=== PATIENT | female | born 1945 | race Caucasian/White ===

== ENCOUNTER → 2016-11-01 17:01 | Outpatient (CLI) | payer MEDICARE ==
[2010-07-08 11:23] VITALS: BMI 40.8
== END | disposition home or self-care (01) ==
LOC: D.MAMMO 10:30
DX: Z12.31 Encounter for screening mammogram for malignant neoplasm of breast (principal)

== ENCOUNTER 2017-03-22 07:47 | Outpatient (CLI) | payer MEDICARE, OTHER ==
[~2017-03-22] VITALS: Ht 157.5 cm; Wt 70.5 kg
--- NOTE | ~2017-03-22 | HEMODYNAMI ---
PATIENT:KARAN KITCHEN MEDICAL RECORD: [id number] : 43 LOCATION:[facility] ADMISSION DATE: 03/22/17 Generatedon:03/22/201710:55 Patient name: KARAN KITCHEN Patient #: [id number] SSN: : 1945 Date of study: 03/22/2017 Page: Of Hemodynamic Procedure Report Patient Data Patient Demographics Procedure consent was obtained First Name: KARAN Gender: Female Last Name: FIDELINA : 1945 [facility] Initial: JORGE L Age: 71 year(s) Patient #: [id number] Race: Unknown Additional ID: [id number] Contact details Address: [address] State: [place] City: [place] Zip code: [address] Admission Admission Data Admission Date: 03/22/2017 Admission Time: 7:47 Height (in.): 62 BSA: 1.72 (m2) Height (cm.): 157.48 BMI: 28.35 (kg/m2) Weight (lbs.): 155 Weight (kg.): 70.31 Lab Results Lab Result Date: 03/22/2017 Lab Result Time: 0:00 Biochemistry Name Units Result Min Max BUN mg/dl 36 --(----)-* 7 18 Creatinine mg/dl 1.3 --(---*)-- 0.6 1.3 CBC Name Units Result Min Max Hemoglobin g/dl 14.6 --(-*--)-- 13.5 17.5 Procedure Procedure Types Cath Procedure Miscellaneous Procedures Moderate Sedation up to 15 minutes Peripheral Cath Diagnostic Procedure Cath Peripheral Lyngo-Dzriwkb-Rtk-Off Procedure Description Procedure Date Procedure Date: 03/22/2017 Procedure Start Time: 10:35 Procedure End Time: 10:53 Procedure Staff Name Function Phil Harris MD Performing Physician Gerry Gonsalez RN Nurse Oscar Reeves RT Monitor Millie Matute RT Scrub Procedure Data Cath Procedure Fluoroscopy Diagnostic fluoroscopy Total fluoroscopy Time: 1.3 time: 1.3 min min Diagnostic fluoroscopy Total fluoroscopy dose: 87 dose: 87 mGy mGy Contrast Material Contrast Material Type Amount (ml) Isovue 300 50 Entry Location Entry Primary Successful Side Size Upsize Upsize Entry Closure Succes sful Closure Location (Fr) 1 (Fr) 2 (Fr) Remarks Device Remarks Femoral Left 5 Fr Vascade artery Closure System Estimated blood loss: 10 ml Diagnostic catheters Device Type Used For End Catheter Placement Cordis Tempo 5Fr UF Procedure catheter Procedure Complications No complications Procedure Medications Medication Administration Route Dosage Oxygen NC 2 l/min Heparin Flush Bag added to field 2 bags (1000units/500ml NS) 0.9% NaCl I.V. 100 ml/hr Fentanyl I.V. 50 mcg Versed I.V. 1 mg Fentanyl I.V. 50 mcg Versed I.V. 1 mg Hemodynamics Rest BSA: 1.72 (m2) O2 Consumption: Estimated: 151.2 (ml/min) O2 Consumption indexed: Estimated:87.91 (ml/min/m) Heart Rate: 60 (bpm) Pressure Samples Time Site Value (mmHg) Purpose Heart Use Rate(bpm) 10:40 AO 113/49(72) Snapshot 60 Snapshots Pre Cath Intra NCS Post Cath Vital Signs Time Heart Resp SPO2 etCO2 [id number] NIBP (mmHg) Rhythm Pain Sedation Rate (ipm) (%) (mmHg) (mmHg) Status Level (bpm) 10:03:40 65 16 99 0 0 153/65(117) NSR 0 (11) 10(A) , No pain 10:08:02 60 17 97 0 0 138/58(107) NSR 0 (11) 10(A) , No pain 10:12:16 60 17 95 0 0 117/62(94) NSR 0 (11) 10(A) , No pain 10:16:32 60 18 98 0 0 116/55(90) NSR 0 (11) 10(A) , No pain 10:20:44 60 18 97 0 0 123/62(97) NSR 0 (11) 10(A) , No pain 10:25:00 60 16 97 0 0 120/58(92) NSR 0 (11) 10(A) , No pain 10:29:16 60 17 97 0 0 120/58(96) NSR 0 (11) 10(A) , No pain 10:33:30 60 18 97 0 0 120/60(93) NSR 0 (11) 10(A) , No pain 10:37:46 60 16 95 0 0 117/58(85) NSR 0 (11) 9(A) , No pain 10:42:02 60 17 95 0 0 113/54(85) NSR 0 (11) 9(A) , No pain 10:45:25 60 17 96 0 0 110/56(86) NSR 0 (11) 9(A) , No pain 10:49:39 60 19 97 0 0 113/52(88) NSR 0 (11) 9(A) , No pain 10:53:38 0 0 No Cuff NSR 0 (11) 9(A) , No pain Medications Time Medication Route Dose Verified Delivered Reason Notes Effec tiveness by by 10:05:11 Oxygen NC 2 Gerry Gerry Per l/min Wallace Gonsalez RN physician RN 10:05:22 Heparin Flush added 2 Gerry Gerry used for Bag to bags Wallace Gonsalez RN procedure (1000units/500ml field RN NS) 10:05:33 0.9% NaCl I.V. 100 Gerry Gerry Per ml/hr Wallace Gonsalez RN physician RN 10:34:02 Fentanyl I.V. 50 Gerry Gerry for gerald Gonsalez RN sedation RN 10:34:08 Versed I.V. 1 mg Gerry Gerry for Wallace Gonsalez RN sedation RN 10:38:16 Fentanyl I.V. 50 Gerry Gerry for gerald Gonsalez RN sedation RN 10:38:19 Versed I.V. 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 Start room use. 9:58:07 Patient received from Pre/Post Procedure Room to CCL 1 Alert and oriented. Tansferred to table in Supine position. 9:58:08 Warm blankets applied, and darby hugger turned on for patient comfort. 9:58:09 Correct patient and procedure confirmed by team. 9:58:10 Signed procedure consent form obtained from patient. 10:01:56 Time tracking: Regular hours 10:02:00 Plan of Care:Hemodynamics will remain stable., Cardiac rhythm will remain stable., Comfort level will be maintained., Respiratory function will remain adequate., Patient/ family verbilizes understanding of procedure., Procedure tolerated without complication., Recovers from procedure without complications.. 10:02:10 ECG and BP/O2 sat monitors applied to patient. 10:02:28 Vital chart was started 10:05:11 Oxygen 2 l/min NC was administered by Gerry Gonsalez RN; Per physician; 10:05:22 Heparin Flush Bag (1000units/500ml NS) 2 bags added to field was administered by Gerry Gonsalez RN; used for procedure; 10:05:33 0.9% NaCl 100 ml/hr I.V. was administered by Gerry Gonsalez RN; Per physician; 10:12:50 Rhythm: paced 10:12:52 Full Disclosure recording started 10:13:15 H&P Date Dictated: 03/21/2017 Within 30 days and on chart., H&P Addendum completed by physician on day of procedure. (MUST COMPLETE FOR ALL OUTPATIENTS). 10:13:16 Pre-procedure instructions explained to patient. 10:13:16 Pre-op teaching completed and patient verbalized understanding. 10:13:19 Family in waiting room. 10:13:21 Patient NPO since Midnight. 10:13:24 Is the patient allergic to Iodine/contrast media? No. 10:13:26 Is patient on blood thinner?No 10:13:28 Patient diabetic? Yes. 10:13:29 If diabetic: On Metformin? No 10:13:30 Patient not . Patient is over age 55. 10:13:32 Previous problem with sedation/anesthesia? No ? 10:13:33 Snore? No 10:13:41 Sleep apnea? No 10:13:42 Deviated septum? No 10:13:43 Opens mouth fully? Yes 10:13:44 Sticks out tongue? Yes 10:13:46 Airway obstruction? Yes COPD 10:13:58 Dentures? No ? 10:14:01 Pre procedure: right dorsailis pedis pulse 1+ Palpable, but thready & weak; easily obliterated 10:14:05 Pre procedure: left dorsailis pedis pulse 1+ Palpable, but thready & weak; easily obliterated 10:14:09 Patient pain scale 0/10 ?. 10:14:16 IV patent on arrival in left forearm with 0.9% NaCl at KVO. 10:14:18 Lab results completed and on chart. 10:14:23 Bilateral groins area was prepped with chlora-prep and draped in sterile fashion 10:14:24 Alarms reviewed by R. N. 10:14:25 Sharps counted by scrub and verified by R.N. 10:14:31 Use device set Femoral Dx 10:14:32 Tegaderm 4 x 4 opened to sterile field. 10:14:33 Acist Hand Control opened to sterile field. 10:14:34 Acist Manifold opened to sterile field. 10:14:35 Acist Syringe opened to sterile field. 10:14:35 Bag Decanter opened to sterile field. 10:14:36 Medline Cath Pack opened to sterile field. 10:14:36 Terumo 5Fr Montgomery Sheath opened to sterile field. 10:14:37 St Adrian 260cm J .035 wire opened to sterile field. 10:15:01 Patient Height : 62 cm 10:15:04 Patient Weight : 155 kg 10:15:27 Lab Result : Hemoglobin 14.6 g/dl 10:15:27 Lab Result : Creatinine 1.3 mg/dl 10:15:27 Lab Result : BUN 36 mg/dl 10::23 Zero performed for pressure channel P1 10::07 --------ALL STOP TIME OUT------ :: Final Timeout: patient, procedure, and site verified with staff and physician. All members of the team are in agreement. 10:29:10 Bilateral groins site verified by team. 10:29:13 Physical assessment completed. ASA score P 2 - A patient with mild systemic disease as per Phil Harris MD. 10:29:17 Sedation plan: IV Moderate Sedation Versed, Fentanyl 10:34:02 Fentanyl 50 mcg I.V. was administered by Gerry Gonsalez RN; for sedation; 10:34:08 Versed 1 mg I.V. was administered by Gerry Gonsalez RN; for sedation; 10:35:07 Procedure started. 10:35:12 Local anesthetic to left femerol artery with Lidocaine 2% by Phil Harris MD.INITIAL ACCESS ONLY 10:38:16 Fentanyl 50 mcg I.V. was administered by Gerry Gonsalez RN; for sedation; 10:38:19 Versed 1 mg I.V. was administered by Gerry Gonsalez RN; for sedation; 10:38:38 Cook 18G 7cm Percutaneous Entry needle opened to sterile field. 10:38:59 A 5 Fr sheath was inserted into the Left Femoral artery 10:39:07 A CordDynis Tempo 5Fr UF catheter was advanced over the wire and used for Procedure. 10:39:47 Abdominal Aortagram was performed. 10:39:56 Left leg runoff performed. 10:40:12 Right leg runoff performed. 10:41:16 Catheter removed. 10:41:37 Vascade 5Fr Closure Device opened to sterile field. 10:42:35 Sheath removed intact; hemostasis achieved with Vascade Closure System to the Left Femoral artery. 10:42:39 Procedure ended.(Physican Out) 10:50:55 Fluoroscopy time 01.30 minutes. 10:50:58 Fluoroscopy dose: 87 mGy 10:50:58 Flurop Dose total: 87 10:51:05 Contrast amount:Isovue 300 50ml. 10:51:07 Sharps counted by scrub and verified by R.N. 10:51:09 Insertion/operative site no bleeding no hematoma. 10:51:15 Post-op/insertion site Left Femoral artery dressed using a 4 x 4 and Tegaderm. 10:51:20 Post Procedure Pulses reassessed and unchanged 10:51:28 Post-procedure physical assessment completed. ASA score P 2 - A patient with mild systemic disease as per Phil Harris MD. 10:51:30 Post procedure rhythm: unchanged. 10:51:33 Estimated blood loss: 10 ml 10:51:35 Post procedure instruction explained to patient.Patient verbalizes understanding. 10:51:36 Patient needs reinforcement of post procedure teaching. 10:52:39 Procedure and supply charges have been captured, reviewed, submitted and are correct. 10:52:42 Procedure Complication : No complications 10:53:06 Vital chart was stopped 10:53:07 See physician's report for complete and final results. 10:53:09 Report given to Pre/Post Procedure Room. 10:53:12 Patient transfered to Pre/Post Procedure Room with Stretcher. 10:53:15 Procedure ended. 10:53:15 Full Disclosure recording stopped 10:53:28 End room use (Document Last) Device Usage Item Name Manufacture Quantity Catalog Number Hospital Part Current Mini mal Lot# / Charge Number Stock Stock Serial# Code Tegaderm 4 x 3M 1 [id number] [id number] 5 4 Acist Hand Acist 1 35487 424602 062858 562314 5 Control [employer] Inc Acist Acist 1 28805 173709 207380 732194 5 Manifold Medical Systems Inc Acist Acist 1 38545 576635 221680 006880 20 Syringe Medical Systems Inc Bag Decanter Microtek 1 2002S 976113 36057 104474 5 Medical Inc. Medline Cath Cardinal 1 [id number] [id number] 64190 206993 5 Pack Health Terumo 5Fr Terumo 1 [id number] 135783 640947 304968 [address] [facility] 1 812866 598583 997458 251294 30 260cm J .035 wire Cook 18G 7cm Cook Medical 1 [id number] 285091 24955 247372 5 Percutaneous Entry needle Cordis Tempo Cardinal 1 [id number] 369499 583242 704763 10 5Fr Health catheter Vascade 5Fr Cardiva 1 [id number] 757583 68158 417564 10 Closure Medical, Device Inc. Signature Audit [place] Stage Time Signature Unsigned Intra-Procedure 03/22/2017 Oscar Reeves 10:55:07 AM RT(R) Signatures Monitor : Oscar Reeves RT Signature : Date : Time : [id number] [place] [address]
[2017-03-22] MEDS ORDERED: LEVOXYL50 MCG PO (08:29)
[2017-03-22] MEDS ORDERED: FUROSEMIDE40 MG PO (08:29)
[2017-03-22] MEDS ORDERED: ZOCOR20 MG PO (08:30)
[2017-03-22] MEDS ORDERED: ZYLOPRIM300 MG PO (08:30)
[2017-03-22] MEDS ORDERED: AMBIEN10 MG PO (08:30)
[2017-03-22] MEDS ORDERED: COREG6.25 MG PO (08:31)
[2017-03-22] MEDS ORDERED: ALDACTONE25 MG PO (08:31)
[2017-03-22] MEDS ORDERED: ASPIRIN325 MG PO (08:32)
[2017-03-22] MEDS ORDERED: CATAPRES0.2 MG PO (08:32)
[2017-03-22] MEDS ORDERED: ALEVE220 MG PO (08:33)
[2017-03-22 08:34] VITALS: BP 132/73; Ht 157.5 cm; Wt 70.5 kg
[2017-03-22 08:46] LABS: BASOPHILS 0.5 % (0-2); EOSINOPHILS 5.2 % (0-7); HEMATOCRIT 44.1 % (36.0-48.0); HEMOGLOBIN 14.6 g/dL (12-16); IMMATURE GRANULOCYTES 0.1 % (0-5); LYMPHOCYTES 21.1 % (15-50); MCH 30.2 pg (26.0-34.0); MCHC 33.1 g/dL (31.0-37.0); MCV 91.3 fL (80.0-100.0); MEAN PLATELET VOLUME 10.9 fL (7.4-10.4); MONOCYTES 8.7 % (2-11); NEUTROPHILS 64.4 % (40-80); RBC 4.83 10x6/uL (4.00-5.40); RDW 16.6 % (11.5-14.5); WBC 7.7 10x3/uL (4.8-10.8)
[2017-03-22 08:49] LABS: PLATELET COUNT 245 10x3/uL (130-400)
[2017-03-22 08:54] LABS: ANION GAP 12.9 mmol/L (8-16); CALCIUM 9.4 mg/dL (8.5-10.1); CARBON DIOXIDE 28.8 mmol/L (21.0-32.0); CREATININE - SERUM 1.3 mg/dL (0.6-1.3); POTASSIUM - SERUM 4.7 mmol/L (3.5-5.1)
--- NOTE | 2017-03-22 11:15 | NUR ---
LEFT GROIN CDI, NO HEMATOMA OR BLEEDING AT SITE, SOFT TO TOUCH, AT SIDE
--- NOTE | 2017-03-22 11:45 | NUR ---
NO CHANGES TO LEFT GROIN, BEDPAN USED, NO HEMATOMA OR BLEEDING
--- NOTE | 2017-03-22 12:30 | NUR ---
IV D'C WITH CATH TIP INTACT, WRITTEN AND VERBAL D'C INSTRUCTIONS GIVEN TO PT AND . D'C HOME WITH
--- NOTE | 2017-03-27 13:54 | OP ---
PATIENT NAME: KARAN KITCHEN MEDICAL RECORD: [id number] :43 LOCATION:D.CAT ADMISSION DATE: SURGEON: ROXY TEJADA MD OPERATION DATE: 03/22/17 DATE OF OPERATION: 03/22/2017 PROCEDURES: 1. Aortofemoral runoff. 2. Abdominal aortography. INDICATION: Claudication and peripheral vascular disease. PROCEDURE IN DETAIL: After informed consent was obtained and after a detailed explanation of risks, benefits as well as alternative therapies, the patient elected to proceed with angiogram. The left femoral area was prepped and draped in normal sterile fashion. The left femoral artery was cannulated via modified Seldinger technique with placement of 5-Ivorian sheath. All catheters exchanged through this sheath. FINDINGS: Abdominal aortography was performed. The catheter was pulled down for aortofemoral runoff. Abdominal aortography reveals renal artery stenosis on the right greater than 80%, no renal artery stenosis on the left. Moderate diffuse disease of the abdominal aorta, but no flow limiting stenosis. RIGHT LEG: A. Iliac: The common internal and external iliacs have moderate irregularities, but no flow-limiting stenosis. B. Femoral system: The common and deep femoral are widely patent. Superficial femoral has a total occlusion in the mid vessel all the way to the distal vessel. There is a large collateral that takes off right after total occlusion making this not amenable to transcatheter revascularization. C. Popliteal and infrapopliteal vessels appear to be patent with preserved 3-vessel runoff to the foot. LEFT LEG: A. Iliac: The common internal and external iliacs have moderate irregularities, but no flow-limiting stenosis. B. Femoral system: The common and deep femoral are widely patent. Superficial femoral has multiple areas of 70% to 80% stenosis. This is patent. This is amenable to transcatheter revascularization. C. Popliteal and infrapopliteal vessels are patent with preserved 3-vessel runoff to the foot. OVERALL IMPRESSION: Her main symptomatic leg is the right leg. This is not amenable to transcatheter revascularization, but would be amenable to femoropopliteal bypass surgery. TRANSINT:[id number] Voice Confirmation ID: [id number] DOCUMENT ID: [id number] OPERATIVE REPORT [id number] FIDELINAKARAN ROXY PARIKH MD at 1354 CC: [id number] DICTATION DATE: 03/22/17 [facility]8 SALES AND BUSINESS DEVELOPMENT MANAGER: 03/22/17 1115 DEP CLI 03/22/17 [id number] [place]
== END 2017-03-22 12:45 | disposition home or self-care (01) ==
LOC: D.CATH 07:47
PROVIDERS: Internal Medicine Interventional Cardiology
DX: I70.219 Atherosclerosis of native arteries of extremities with intermittent claudication, unspecified extremity (principal); R94.39 Abnormal result of other cardiovascular function study; I10 Essential (primary) hypertension; E78.5 Hyperlipidemia, unspecified; Z01.812 Encounter for preprocedural laboratory examination

== ENCOUNTER 2018-03-29 14:20 | Inpatient (IN) | payer MEDICARE, OTHER ==
[~2018-03-29] VITALS: Ht 157.5 cm; Wt 65.5 kg
--- NOTE | ~2018-03-29 | HEMODYNAMI ---
PATIENT:KARAN KITCHEN MEDICAL RECORD: [id number] : 43 LOCATION:[facility] ADMISSION DATE: 03/29/18 Generatedon:03/29/201815:57 Patient name: KARAN KITCHEN Patient #: [id number] SSN: : 1945 Date of study: 03/29/2018 Page: Of Hemodynamic Procedure Report Patient Data Patient Demographics Procedure consent was obtained First Name: KARAN Gender: Female Last Name: FIDELINA : 1945 [facility] Initial: JORGE L Age: 72 year(s) Patient #: [id number] Race: Unknown Additional ID: [id number] Contact details Address: [address] State: [place] City: [place] Zip code: [address] Past Medical History Allergies: No known allergies Admission Admission Data Admission Date: 03/29/2018 Admission Time: 14:20 Admit Source: Emergency department Current Diagnosis Diagnosis Description STEMI Procedure Procedure Types Cath Procedure Diagnostic Procedure LHC LHC w/Coronaries PCI Procedure AMI/SVG/SKIN CARE CONSULTANT PTCA or Stent AMI-BMS/WILFREDO Initial Procedure Description Procedure Date Procedure Date: 03/29/2018 Procedure Start Time: 15:20 Procedure End Time: 15:56 Procedure Staff Name Function Smith Cabello MD Performing Physician Delia Jara RT Monitor Gus Reyes RT Scrub Darlene Gomez RN Nurse Additional PCI Information PCI indication: Immediate PCI for STEMI STEMI or STEMI equivalent first noted in First ECG on First device activation on: 03/29/2018 15:36 Procedure Data Cath Procedure Fluoroscopy Diagnostic fluoroscopy Total fluoroscopy Time: 6.6 time: 6.6 min min Diagnostic fluoroscopy Total fluoroscopy dose: dose: 1180 mGy 1180 mGy Contrast Material Contrast Material Type Amount (ml) Isovue 370 132 Entry Location Entry Primary Successful Side Size Upsize Upsize Entry Closure Succes sful Closure Location (Fr) 1 (Fr) 2 (Fr) Remarks Device Remarks Femoral Right 6 Fr Exoseal artery Short Estimated blood loss: 10 ml Diagnostic catheters Device Type Used For End Catheter Placement MULTIPACK JL 4.0 5Fr Left Coronary catheter Angiography MULTIPACK 3DRC 5Fr Right Coronary catheter Angiography MULTIPACK Pigtail 5 Fr LV Angiography catheter DIAGNOSTIC AL 1 5Fr Right Coronary catheter ([id number]) Angiography Procedure Complications No complications Procedure Medications Medication Administration Route Dosage Oxygen etCO2 Nasal cannula 2 l/min Lidocaine 2% added to field 20 Heparin Flush Bag added to field 2 bags (1000units/500ml NS) 0.9% NaCl I.V. 100 ml/hr Integrilin (Bolus I.V. 6.2 ml 2mg/ml) Heparin Bolus I.V. 4000 units Hemodynamics Rest Heart Rate: 70 (bpm) Pressure Samples Time Site Value (mmHg) Purpose Heart Use Rate(bpm) 15:46 LV 106/8,15 EDP 87 Gradients Valve Time Site Site Mean SEP/DFP Peak To Heart Use 1 2 (mmHg) (sec/min) Peak Rate (mmHg) (bpm) Aortic 15:47 LV AO 76 Snapshots Pre Cath Intra NCS Post Cath Vital Signs Time Heart Resp SPO2 etCO2 NIBP Rhythm Pain Sedation Rate (ipm) (%) (mmHg) (mmHg) Status Level (bpm) 15:18:20 60 12 96 30.8 119/60(97) NSR 0 (11) 10(A) , No pain 15:23:05 60 16 99 31.6 122/63(93) NSR 0 (11) 10(A) , No pain 15:27:54 62 17 96 30.1 120/59(90) NSR 0 (11) 10(A) , No pain 15:32:39 65 18 97 30.8 110/56(85) NSR 0 (11) 10(A) , No pain 15:37:25 74 15 95 33.1 87/38(55) NSR 0 (11) 10(A) , No pain 15:42:06 72 16 98 31.5 86/49(70) NSR 0 (11) 10(A) , No pain 15:46:44 90 16 96 33.8 92/58(68) NSR 0 (11) 10(A) , No pain 15:51:27 77 17 99 31.6 98/51(74) NSR 0 (11) 10(A) , No pain 15:56:09 77 15 92 30.8 97/60(76) NSR 0 (11) 10(A) , No pain Medications Time Medication Route Dose Verified Delivered Reason Notes Effectiveness by by 15:20:57 Oxygen etCO2 2 Smith Buffie used for Nasal l/min Regina Gomez RN procedure cannula MD 15:21:03 Lidocaine 2% added 20ml Smith Smith for local to vial Regina Cabello MD anesthetic field 15:21:09 Heparin Flush added 2 Smith Smith used for Bag to bags Regina Cabello MD procedure (1000units/500ml field NS) 15:21:18 0.9% NaCl I.V. 100 Smith Buffie Per physician ml/hr Regina Gomez RN, MD 15:27:37 Integrilin I.V. 6.2 Smith Buffie for waste d (Bolus 2mg/ml) ml Regina Gomez RN antiplatelet 3.8 ml therapy of vial 15:30:11 Heparin Bolus I.V. 4000 Smith Buffie for verif ied units Regina Gomez RN anticoagulation with dr MD cabello Procedure Log Time Note 15:01:04 Informed consent obtained and on chart 15:01:06 Admit Source: Emergency department 15:01:22 Diagnostic Cath status Emergency 15:01:24 Darlene Gomez RN sent for patient. Start room use. 15:01:25 Time tracking: Call back (After hours or weekends) 15:01:28 Plan of Care:Hemodynamics will remain stable., Cardiac rhythm will remain stable., Comfort level will be maintained., Respiratory function will remain adequate., Patient/ family verbilizes understanding of procedure., Procedure tolerated without complication., Recovers from procedure without complications.. 15:10:13 Patient received from ED to CCL 1 Alert and oriented. Tansferred to table in Supine position. 15:10:13 Warm blankets applied, and darby hugger turned on for patient comfort. 15:10:14 Correct patient and procedure confirmed by team. 15:10:14 ECG and BP/O2 sat monitors applied to patient. 15:10:15 Full Disclosure recording started 15:17:23 Baseline sample Acquired. 15:17:23 Vital chart was started 15:17:26 Rhythm: w/ ST elevation, paced 15:17:58 H&P Date Dictated: 03/29/2018 ER History on chart.. 15:17:59 Pre-procedure instructions explained to patient. 15:18:00 Pre-op teaching completed and patient verbalized understanding. 15:18:20 Family in waiting room. 15:18:23 Patient NPO since Midnight. 15:18:26 Is the patient allergic to Iodine/contrast media? No. 15:18:34 Patient allergic to No known allergies 15:18:37 Is patient on blood thinner?Yes 15:18:39 ACC The patient was administered the following blood thiners within the last 24 hours: ACCPlavix 15:18:40 Patient diabetic? Yes. 15:18:43 If diabetic: On Metformin? No 15:18:51 Previous problem with sedation/anesthesia? No ? 15:18:52 Snore? Yes 15:18:53 Sleep apnea? No 15:18:54 Deviated septum? No 15:18:55 Opens mouth fully? Yes 15:18:55 Sticks out tongue? Yes 15:18:57 Airway obstruction? Yes COPD 15:18:59 Dentures? No ? 15:19:14 Pre procedure: right dorsailis pedis pulse 1+ Palpable, but thready & weak; easily obliterated 15:19:16 Patient pain scale 0/10 ?. 15:19:21 IV patent on arrival in right forearm with 0.9% NaCl at O. 15:19:24 Lab results completed and on chart. 15:19:26 Right groin area was prepped with chlora-prep and draped in sterile fashion 15:19:27 Alarms reviewed by R. N. 15:19:27 Sharps counted by scrub and verified by R.N. 15:19:28 Final Timeout: patient, procedure, and site verified with staff and physician. All members of the team are in agreement. 15:19:30 Right groin site verified by team. 15:19:33 Physical assessment completed. ASA score P 3 - A patient with severe systemic disease as per Smith Cabello MD. 15:19:36 Sedation plan: IV Moderate Sedation Medication:Versed, Fentanyl 15:19:56 IV Extension Set opened to sterile field. 15:20:00 Use device set Femoral Dx 15:20:05 Use device set NORRED PCI 15:20:08 SHEATH Prelude 6Fr 0.035 ([id number]-7G-43-035) opened to sterile field. 15:20:11 ACIST Syringe (62506) opened to sterile field. 15:20:12 Bag Decanter (2001S) opened to sterile field. 15:20:12 Medline Cath Pack ([id number]) opened to sterile field. 15:20:13 DIAGNOSTIC WIRE .035 260cm J wire (266157) opened to sterile field. 15:20:15 ACIST Hand Control (28225) opened to sterile field. 15:20:15 ACIST Manifold (32364) opened to sterile field. 15:20:20 Tegaderm 4 x 4 (1626W) opened to sterile field. 15:20:23 MICROPUNCTURE 4FR Owingo (P28764) opened to sterile field. 15:20:30 BMW 190cm [place] 2 J wire ([id number]) opened to sterile field. 15:20:33 INFLATOR Merit BasixCompak (VI4466) opened to sterile field. 15:20:34 COPILOT Valve Control (2467202) opened to sterile field. 15:20:38 Procedure started. 15:20:43 Local anesthetic to right femoral artery with Lidocaine 2% by Smith Cabello MD.INITIAL ACCESS ONLY 15:20:57 Oxygen 2 l/min etCO2 Nasal cannula was administered by Darlene Gomez RN; used for procedure; 15:21:03 Lidocaine 2% 20ml vial added to field was administered by Smith Cabello MD; for local anesthetic; 15:21:09 Heparin Flush Bag (1000units/500ml NS) 2 bags added to field was administered by Smith Cabello MD; used for procedure; 15:21:18 0.9% NaCl 100 ml/hr I.V. was administered by Darlene Gomez RN; Per physician; 15:22:28 Access obtained with 4Fr micropunture. 15:22:34 A 6 Fr Short sheath was inserted into the Right Femoral artery 15:23:04 Zero performed for pressure channel P1 15:23:11 Zero performed for pressure channel P1 15:23:47 A MULTIPACK JL 4.0 5Fr catheter was advanced over the wire and used for Left Coronary Angiography. 15:25:52 DR CABELLO STATES REVASCULARIZATION HAS OCCURRED 15:26:04 Catheter removed. 15:26:38 A MULTIPACK 3DRC 5Fr catheter was advanced over the wire and used for Right Coronary Angiography. 15:27:37 Integrilin (Bolus 2mg/ml) 6.2 ml I.V. was administered by Darlene Gomez RN; for antiplatelet therapy; wasted 3.8 ml of vial 15::38 Catheter removed. 15:28:47 DIAGNOSTIC Multipack 5Fr catheter set (XN1964) opened to sterile field. 15:29:00 GUIDE 6FR XBLAD 4.0 catheter ([id number]) opened to sterile field. 15:29:13 6 Fr XBLAD 4.0 guide catheter was inserted over the wire 15:30:11 Heparin Bolus 4000 units I.V. was administered by Darlene Gomez RN; for anticoagulation; verified with dr cabello 15:31:03 Current Diagnosis : STEMI 15:31:28 PCI Indication : Immediate PCI for STEMI 15:32:53 BMW wire advanced. 15:36:03 Inflate balloon Inflation number: 1 A EUPHORA 2.0 x 20 Balloon ([id number]) was prepped and advanced across the Mid CX, then inflated to 12 JERSON for 0:10 (min:sec). 15:38:23 Balloon removed over the wire. 15:40:23 Place stent Inflation Number: 2 A SOLOMON RX 2.5 x 22 stent ([id number]) was prepped and advanced across the Mid CX. The stent was deployed at 13 JERSON for 0:26 (min:sec). 15:41:02 Stent catheter was removed intact over wire. 15:44:08 Wire removed. 15:44:08 Guide catheter removed. 15:45:06 A MULTIPACK Pigtail 5 Fr catheter was advanced over the wire and used for LV Angiography. 15:46:16 LV gram done using VALENTIN 15:46:18 LV hemodynamics recorded. 15:46:21 Injector settings: Ml/sec: 12, Volume: 8, 15:47:17 Catheter removed. 15:47:30 A DIAGNOSTIC AL 1 5Fr catheter ([id number]) was advanced over the wire and used for Right Coronary Angiography. 15:50:06 Catheter removed. 15:50:12 Sheath removed intact; hemostasis achieved with Exoseal to the Right Femoral artery. 15:50:23 Procedure ended.(Physican Out) 15:50:33 Fluoroscopy time 06.60 minutes. 15:50:38 Flurop Dose total: 1180 15:50:38 Fluoroscopy dose: 1180 mGy 15:50:44 Contrast amount:Isovue 370 132ml. 15:51:38 Sharps counted by scrub and verified by R.N. 15:51:39 Insertion/operative site no bleeding no hematoma. 15:51:41 Post-op/insertion site Right Femoral artery dressed using a 4 x 4 and Tegaderm. 15:51:45 Post right femoral artery:stable, clean and dry 15:51:46 Post Procedure Pulses reassessed and unchanged 15:51:49 Post-procedure physical assessment completed. ASA score P 2 - A patient with mild systemic disease as per Smith Cabello MD. 15:51:51 Post procedure rhythm: unchanged. 15:51:54 Estimated blood loss: 10 ml 15:51:55 Post procedure instruction explained to patient.Patient verbalizes understanding. 15:51:56 Patient needs reinforcement of post procedure teaching. 15:52:58 EXOSEAL 6Fr (EX600) opened to sterile field. 15:54:05 Procedure and supply charges have been captured, reviewed, submitted and are correct. 15:54:08 Procedure Complication : No complications 15:54:10 See physician's report for complete and final results. 15:54:13 Report given to PCU. 15:55:52 Patient transfered to PCU with Bed. 15:56:37 Procedure ended. 15:56:37 Full Disclosure recording stopped 15:56:40 End room use (Document Last) 15:57:48 Vital chart was stopped Intervention Summary Intervention Notes Time ActionType Lesion and Equipment Used Action# Pressure Duration Attributes 15:36:03 Inflate Mid CX EUPHORA 2.0 x 1 12 00:10 balloon 20 Balloon ([id number]) 15:40:23 Place stent Mid CX SOLOMON RX 2.5 x 2 13 00:26 22 stent ([id number]) Device Usage Item Name Manufacture Quantity Catalog Hospital Part Current M inimal Lot# / Number Charge Number Stock Stock Serial# Code IV Extension Hospira 1 [id number] 75478 967555 5 Set SHEATH Prelude Merit 1 [id number]-[id number] 611491 5990396 354049 5 6Fr 0.035 Medical (JVD-[id number]) ACIST Syringe Acist 1 63664 878959 576243 368896 2 0 (40628) Medical Systems Inc Bag Decanter Microtek 1 2002S 575371 96111 902948 5 (2001S) Medical Inc. Medline Cath Cardinal 1 [id number] 531972 48398 720035 5 Pack Health ([id number]) DIAGNOSTIC WIRE [facility] [place] 1 098494 873792 975513 791427 3 0 .035 260cm J wire (422661) ACIST Hand Acist 1 36034 152249 778039 755078 5 Control (15254) Medical Systems Inc ACIST Manifold Acist 1 24880 094848 823715 774273 5 (84732) Medical Systems Inc Tegaderm 4 x 4 3M 1 1626W 824775 098369 783963 5 (1626W) MICROPUNCTURE Owingo Medical 1 B63739 365736 283814 292060 5 4FR Cook (H70326) BMW 190cm Cross 1 [id number] 348252 55846 519902 5 [place] 2 J Vascular wire (5483813N) INFLATOR Merit Merit 1 RJ9170 436097 524513 885749 1 5 [facility] (WU8760) COPILOT Valve Cross 1 5858426 507930 852217 843721 5 Control Vascular (7727934) MULTIPACK JL Cardinal 1 576314 5 4.0 5Fr Health catheter MULTIPACK 3DRC Cardinal 1 091435 5 5Fr catheter Health DIAGNOSTIC Cardinal 1 TF0859 980097 42278 065933 3 0 Multipack 5Fr OmniLytics catheter set (NG3314) GUIDE 6FR XBLAD Cardinal 1 93799495 316035 452615 170877 3 4.0 catheter OmniLytics (40702872) EUPHORA 2.0 x Medtronic 1 [id number] 268391 226192 772538 5 [id number] 20 Balloon ([id number]) SOLOMON RX 2.5 x Medtronic 1 [id number] 757159 8576885 425649 5 [id number] 22 stent ([id number]) MULTIPACK Cardinal 1 649377 5 Pigtail 5 Fr Health catheter DIAGNOSTIC AL 1 Cardinal 1 [id number] 766902 676638 460668 1 5 5Fr catheter Health (155208W) EXOSEAL 6Fr Cardinal 1 EX600 589927 661475 664607 1 0 (EX600) Health Signature Audit [place] Stage Time Signature Unsigned Intra-Procedure 03/29/2018 Delia 3:57:46 PM Counts RT(R) Signatures Monitor : Delia Signature : Counts RT Date : Time : [address] [place] [address]
[2018-03-29 08:00] VITALS: BP 105/56
[~2018-03-29 14:20] MED LIST: ALDACTONE25 MG PO; ALEVE220 MG PO; AMBIEN10 MG PO; ASPIRIN325 MG PO; CATAPRES0.2 MG PO; COREG6.25 MG PO; FUROSEMIDE40 MG PO; LEVOXYL50 MCG PO; ZOCOR20 MG PO; ZYLOPRIM300 MG PO
[2018-03-29 15:03] LABS: BASOPHILS 0.3 % (0-2); EOSINOPHILS 2.9 % (0-7); HEMATOCRIT 43.4 % (36.0-48.0); HEMOGLOBIN 14.3 g/dL (12-16); IMMATURE GRANULOCYTES 0.1 % (0-5); LYMPHOCYTES 25.6 % (15-50); MCH 28.7 pg (26.0-34.0); MCHC 32.9 g/dL (31.0-37.0); MCV 87.1 fL (80.0-100.0); MONOCYTES 12.7 % (2-11); NEUTROPHILS 58.4 % (40-80); PLATELET COUNT 251 10x3/uL (130-400); RBC 4.98 10x6/uL (4.00-5.40); RDW 16.6 % (11.5-14.5); WBC 7.2 10x3/uL (4.8-10.8)
[2018-03-29 15:20] LABS: ALBUMIN 3.4 g/dL (3.4-5.0); ALKALINE PHOSPHATASE 117 U/L (46-116); ALT (SGPT) 25 U/L (10-68); BILIRUBIN - TOTAL 0.51 mg/dL (0.2-1.3); CALC OSMOLALITY 284 mosm/kg (275-300); CALCIUM 9.3 mg/dL (8.5-10.1); CHLORIDE - SERUM 101 mmol/L (98-107); CREATININE - SERUM 1.4 mg/dL (0.6-1.3); GLUCOSE 103 mg/dL (74-106); POTASSIUM - SERUM 3.6 mmol/L (3.5-5.1); PROTEIN - SERUM 7.4 g/dL (6.4-8.2); SODIUM 136 mmol/L (136-145); UREA NITROGEN 48 mg/dL (7-18); eGFR NON AFRICAN AMERICAN 39 mL/min (90-120)
[2018-03-29 15:35] LABS: CKMB 3.3 U/L (0.0-3.6); CREATINE KINASE 63 UL (21-215); PRO BNP 213 pg/mL (0-125)
[2018-03-29 15:38] LABS: TROPONIN-I 0.644 ng/mL (0.000-0.060)
[2018-03-29 17:06] VITALS: BP 97/68; Ht 157.5 cm; Wt 65.5 kg
[2018-03-30 04:00] VITALS: BP 115/53
[2018-03-30 09:24] VITALS: BP 136/64
[2018-03-30] MEDS ORDERED: PLAVIX75 MG PO (09:45)
== END 2018-03-30 12:41 | disposition home or self-care (01) | DRG 247 ==
LOC: D.ER 14:20 → D.CATH 14:20 → EDSTATUS 14:49 → D.M2 16:31
PROVIDERS: Emergency Medicine
PROC: 027034Z Dilation of Coronary Artery, One Artery with Drug-eluting Intraluminal Device, Percutaneous Approach (ICD-10-PCS; principal; 2018-03-30)
PROC: 4A023N7 Measurement of Cardiac Sampling and Pressure, Left Heart, Percutaneous Approach (ICD-10-PCS; 2018-03-30)
PROC: B2111ZZ Fluoroscopy of Multiple Coronary Arteries using Low Osmolar Contrast (ICD-10-PCS; 2018-03-30)
PROC: B2151ZZ Fluoroscopy of Left Heart using Low Osmolar Contrast (ICD-10-PCS; 2018-03-30)
DX: I21.3 ST elevation (STEMI) myocardial infarction of unspecified site (principal); I25.10 Atherosclerotic heart disease of native coronary artery without angina pectoris; I50.9 Heart failure, unspecified; J44.9 Chronic obstructive pulmonary disease, unspecified

== ENCOUNTER 2018-10-10 09:45 | Day surgery (SDC) | payer MEDICARE, OTHER ==
[2018-10-09 14:25] LABS: BASOPHILS 0.4 % (0-2); EOSINOPHILS 4.2 % (0-7); HEMATOCRIT 37.2 % (36.0-48.0); IMMATURE GRANULOCYTES 0.1 % (0-5); LYMPHOCYTES 23.6 % (15-50); MCH 27.3 pg (26.0-34.0); MCHC 32.3 g/dL (31.0-37.0); MCV 84.7 fL (80.0-100.0); MEAN PLATELET VOLUME 10.2 fL (7.4-10.4); MONOCYTES 10.6 % (2-11); NEUTROPHILS 61.1 % (40-80); PLATELET COUNT 264 10x3/uL (130-400); RBC 4.39 10x6/uL (4.00-5.40); RDW 17.3 % (11.5-14.5); WBC 7.9 10x3/uL (4.8-10.8)
[2018-10-09 14:45] LABS: ANION GAP 15.7 mmol/L (8-16); CALCIUM 9.4 mg/dL (8.5-10.1); CARBON DIOXIDE 25.7 mmol/L (21.0-32.0); CREATININE - SERUM 1.1 mg/dL (0.6-1.3); POTASSIUM - SERUM 4.4 mmol/L (3.5-5.1)
[~2018-10-10] VITALS: Ht 157.5 cm; Wt 64.9 kg
[~2018-10-10 09:45] MED LIST changes: +MIRALAX17 GM PO; +PLAVIX75 MG PO
[2018-10-10 10:26] VITALS: BP 148/71; Ht 157.5 cm; Wt 64.9 kg
[2018-10-10] MEDS ORDERED: HYDROCODON-ACE1 EA10 PO (12:57)
--- NOTE | 2018-10-10 14:20 | NUR ---
VERBAL ORDERS RECEIVED FROM DR. OCHOA TO REMOVE PATIENTS MARCUS CATHETER. MV
--- NOTE | 2018-10-10 14:26 | NUR ---
MARCUS CATHETER DC'ED. CATHETER TIP INTACT. MARCUS BAG HAD 400cc's OF CLEAR YELLOW URINE. NO COMPLAINTS FROM PATIENT. PATIENT HAD A SPINAL AND LOCAL BLOCK BY ANESTHESIA, SHE SAID THAT SHE CAN FEEL HER LEGS BUT NOT COMPLETELY.
--- NOTE | 2018-10-10 17:37 | NUR ---
1700 PT STILL UNABLE TO VOID BLADDER SCAN DONE 64ML REGISTERED, CALLED DR. GARRISON AT 1730 ORDERS TO SEND HOME WITH MARCUS CATHETER AND RETURN TO OFFICE SATURDAY TO REMOVE, CATHETER INSERTED RETURN OF 500CC,
--- NOTE | 2018-10-30 09:41 | OP ---
PATIENT NAME: KARAN KITCHEN MEDICAL RECORD: [id number] :43 LOCATION:[facility] ADMISSION DATE: SURGEON: EDMUNDO OCHOA MD DATE OF OPERATION: 10/10/2018 PREOPERATIVE DIAGNOSES: 1. Right inguinal hernia. 2. Coronary artery disease. 3. Hypertension. 4. Hypercholesterolemia. 5. Diabetes mellitus. 6. Congestive heart failure. POSTOPERATIVE DIAGNOSES: 1. Right inguinal hernia. 2. Coronary artery disease. 3. Hypertension. 4. Hypercholesterolemia. 5. Diabetes mellitus. 6. Congestive heart failure. PROCEDURE: Right inguinal hernia repair with medium PHS mesh. SURGEON: Edmundo Ochoa MD REPORT OF PROCEDURE: The patient's right groin was prepped and draped in sterile fashion. An oblique incision was made above the inguinal ligament. Electrocautery was used to dissect through the subcutaneous tissues down to the external oblique fascia. The fascia was opened up to the external ring using electrocautery. The ilioinguinal nerve was found and high ligated. The patient's round ligament appeared to be surgically absent. The patient did have some blood vessels present in this area that were ligated and tied off with 3-0 silks. The patient did have what appeared to be a direct hernia defect. This defect was fat containing. It was easily reducible. Once we reduced it, I could feel into the patient's preperitoneal space and there was no evidence of a femoral hernia visible. The medium PHS mesh was inserted into this hernia and then sutured down on all 4 sides using multiple interrupted 0 Vicryls. The mesh appeared to rest in good position and laid flat against the inguinal floor. At this point, the wound was irrigated out thoroughly with normal saline and care was taken to assure there was no sign of any bleeding. The external oblique fascia was then closed with running 2-0 Vicryl, Jassi's was closed with interrupted 3-0 Vicryl and the skin was closed with running subcutaneous 5-0 Monocryl. A total of 10 mL of 0.25% Marcaine with epinephrine was infused into the surrounding tissues and the wound was dressed appropriately. COMPLICATIONS: None. CONDITION: Stable. ANESTHESIA: Spinal and local. BLOOD LOSS: Minimal. TRANSINT:[id number] Voice Confirmation ID: [id number] DOCUMENT ID: [id number] OPERATIVE REPORT [id number] FIDELINAEDMUNDO BRADLEY MD at 0941 CC: WADE VILLASEÑOR and ROXY TEJADA [id number] DICTATION DATE: 10/10/18 1255 STAFF TOXICOLOGIST: 10/10/18 1322 [facility] 10/10/18 [facility] [address] [place] [address]
== END 2018-10-10 18:07 | disposition home or self-care (01) ==
LOC: D.OPS 09:45 → D.PAN 12:15 → D.OPS 18:07
PROVIDERS: Surgery
DX: K40.90 Unilateral inguinal hernia, without obstruction or gangrene, not specified as recurrent (principal); E78.00 Pure hypercholesterolemia, unspecified; E11.9 Type 2 diabetes mellitus without complications; I11.0 Hypertensive heart disease with heart failure; I50.9 Heart failure, unspecified; Z01.812 Encounter for preprocedural laboratory examination

== ENCOUNTER → 2021-01-11 09:56 | Outpatient (CLI) | payer MEDICARE ==
[2018-10-10 10:26] VITALS: BMI 26.2
[~2021-01-11 09:56] MED LIST changes: +HYDROCODON-ACE1 EA10 PO
== END | disposition home or self-care (01) ==
LOC: D.HCCECHO 09:56
PROVIDERS: ATTEND Internal Medicine Cardiovascular Disease
DX: I25.10 Atherosclerotic heart disease of native coronary artery without angina pectoris (principal)